=== PATIENT | male | born 1950 | race Caucasian/White ===

== ENCOUNTER 2017-11-29 14:58 | Emergency (ER) | payer OTHER, MEDICAID ==
[2017-11-29 16:18] LABS: ADD MAN DIFF? NO
[2017-11-29 16:19] LABS: BASOPHILS % 0.2 % (0.0-2.0); EOSINOPHILS % 0.1 % (0.0-7.0); HEMATOCRIT 41.1 % (42.0-52.0); HEMOGLOBIN 13.3 g/dl (14.0-18.0); LYMPHOCYTES % 9.5 % (15.0-51.0); MEAN CORPUSCULAR HEMOGLOBIN 27.1 pg (29.0-33.0); MEAN CORPUSCULAR HGB CONC 32.4 g/dl (32.0-37.0); MEAN CORPUSCULAR VOLUME 83.9 fl (82.0-101.0); MEAN PLATELET VOLUME 9.9 fl (7.4-10.4); MONOCYTE # 0.8 10^3/ul (0.3-0.9); MONOCYTES % 7.2 % (0.0-11.0); NEUTROPHIL # 8.6 10^3/ul (1.6-7.5); NEUTROPHILS % 82.6 % (39.0-77.0); PLATELET COUNT 284 10^3/UL (140-415); RED CELL DISTRIBUTION WIDTH 14.6 % (11.5-14.5)
[2017-11-29 16:19] LABS: WHITE BLOOD COUNT 10.4 10^3/ul (4.8-10.8)
[2017-11-29 16:23] LABS: INR 1.02; PARTIAL THROMBOPLASTIN TIME 25.5 Sec (25.0-35.0); PROTIME 13.5 Sec (11.9-14.9); PT RATIO 1.1
[2017-11-29 16:29] LABS: ALANINE AMINOTRANSFERASE 25 IU/L (13-69); ALBUMIN 4.8 g/dl (3.3-4.9); ALBUMIN/GLOBULIN RATIO 1.33; ALKALINE PHOSPHATASE 49 IU/L (42-121); ANION GAP 22 (8-16); ASPARTATE AMINO TRANSFERASE 32 IU/L (15-46); BILIRUBIN,INDIRECT 0.7 mg/dl (0-1.1); BILIRUBIN,TOTAL 0.7 mg/dl (0.2-1.3); BLOOD UREA NITROGEN 20 mg/dl (7-20); CALCIUM 10.2 mg/dl (8.4-10.2); CARBON DIOXIDE 24 mmol/L (21-31); CHLORIDE 103 mmol/L (97-110); CREATININE 1.44 mg/dl (0.61-1.24); GLUCOSE 156 mg/dl (70-220); LIPASE 466 U/L (23-300); POTASSIUM 3.8 mmol/L (3.5-5.1); SODIUM 145 mmol/L (135-144); TOTAL PROTEIN 8.4 g/dl (6.1-8.1)
[2017-11-29] MEDS: BELLADONNA/PHENOBARBITAL TAB PO (16:34)
[2017-11-29] MEDS: LIDOCAINE/MYLANTA 40 ML BTL PO (16:34)
[2017-11-29] MEDS: KETOROLAC 15 MG INJ IV (16:35)
[2017-11-29] MEDS: FAMOTIDINE 20 MG TAB PO (16:35)
[2017-11-29] MEDS: SOD CHLORIDE 0.9% 1,000 ML IV (16:36)
[2017-11-29 16:41] LABS: TROPONIN-I < 0.010 ng/ml (0.000-0.120)
[2017-11-29] MEDS: ONDANSETRON INJ 8 MG in DEXTROSE 5% 50 ML IV (16:44)
[2017-11-29] MEDS ORDERED: ACETAMINOPHEN 325 MG TAB (20:05)
[2017-11-29] MEDS: ACETAMINOPHEN 325 MG TAB PO (20:07)
== END 2017-11-29 20:15 | disposition home or self-care (01) ==
LOC: E/R 14:58
DX: R10.33 Periumbilical pain (principal); R11.10 Vomiting, unspecified; R19.7 Diarrhea, unspecified; I10 Essential (primary) hypertension; I25.10 Atherosclerotic heart disease of native coronary artery without angina pectoris; E66.9 Obesity, unspecified; Z68.31 Body mass index [BMI] 31.0-31.9, adult; Z79.82 Long term (current) use of aspirin; Z79.84 Long term (current) use of oral hypoglycemic drugs; Z98.61 Coronary angioplasty status
CPT/HCPCS: 36415; 74176; 80053; 83690; 84484; 85025; 85610; 85730; 93005; 96361; 96374; 96375; 99285-25